=== PATIENT | female | born 1955 | race Caucasian/White ===

== ENCOUNTER → 2018-08-22 | Outpatient (CLI) | payer OTHER ==
[~2018-08-22] MED LIST: ALLEGRA-D 12 H1 EAC1; ALLEGRA-D 24 H1 EACH PO; CENTRUM SILVER1 EAC4 PO; COLON HERBAL C1 EACH PO; ECHINACEA400 MG PO; FIBER500 MG PO; GARLIC1000 MG PO; MAGNESIUM CITR100 MG PO; OMEGA 3-6-9 CO400 MG PO; PEPCID20 MG PO; PULMICORT FLE180 MCG INH; PULMICORT0.25 MG/2; VENTOLIN HFA 1818 GM INH; VENTOLIN17 GM; VITAMIN C500 M1 PO; VITAMIN D1000 UNI1 PO; ZINC50 MG PO; ZYRTEC10 M2
== END ==
LOC: CAT 10:57
DX: Z13.6 Encounter for screening for cardiovascular disorders (principal); E78.00 Pure hypercholesterolemia, unspecified

== ENCOUNTER → 2018-08-22 | Outpatient (CLI) | payer BC | LOC: ULTRA 10:47 | DX: G45.9 Transient cerebral ischemic attack, unspecified (principal); R09.89 Other specified symptoms and signs involving the circulatory and respiratory systems ==

== ENCOUNTER → 2018-08-25 | Outpatient (CLI) | payer BC, OTHER ==
--- NOTE | ~2018-08-25 | 2DMMODE ---
[facility] [place] [address] 2 D/M-MODE ECHOCARDIOGRAM Name: NATALEE JOHNSON Room #: REG [facility]#: [id number] Admission: 08/25/18 Attend Phys: Sierra Mccain Discharge: Date of : 55 Date of Service: 08/25/18 1638 Report #: [id number] THIS REPORT FOR: //name// APPROVED REPORT Study performed: 08/25/2018 15:39:03 EXAM: Comprehensive 2D, Doppler, and color-flow Echocardiogram Patient Location: Out-Patient Status: routine BSA: 1.74 HR: 65 bpm BP: 120/70 mmHg Other Information Study Quality: Good Indications Vertigo 2D Dimensions RVDd: 30.84 mm IVSd: 8.38 (7-11mm) LVOT Diam: 19.95 (18-24mm) LVDd: 38.13 mm PWd: 8.97 (7-11mm) Ascending Ao: 25.15 (22-36mm) LVDs: 25.72 (25-40mm) Aortic Root: 28.69 mm IVC: 15.00 mm Volumes Left Atrial Volume (Systole) Single Plane 4CH: 30.68 mL Single Plane 2CH: 43.37 mL LA ESV Index: 23.00 mL/m2 Aortic Valve AoV Peak Macho.: 1.14 m/s AO Peak Gr.: 5.23 mmHg LVOT Max P.12 mmHg LVOT Max V: 0.88 m/s REMY Vmax: 2.41 cm2 Mitral Valve E/A Ratio: 1.2 MV Decel. Time: 200.98 ms MV E Max Macho.: 0.71 m/s MV A Macho.: 0.61 m/s [facility] [address] [place] [address] 2 D/M-MODE ECHOCARDIOGRAM Name: NATALEE JOHNSON Room #: [facility].#: [id number] Admission: 08/25/18 Attend Phys: Sierra Mccain Discharge: Date of : 55 Date of Service: 08/25/18 1638 Report #: [id number] PHT: 58.28 ms IVRT: 114.19 ms Pulmonary Valve PV Peak Macho.: 0.81 m/s PV Peak Gr.: 2.63 mmHg Pulmonary Vein P Vein S: 0.48 m/s P Vein A: 0.26 m/s P Vein D: 0.43 m/s P Vein A Dur.: 141.9 msec P Vein S/D Ratio: 1.12 Tricuspid Valve TR Peak Macho.: 2.25 m/s RAP Estimate: 5.00 mmHg TR Peak Gr.: 20.16 mmHg PA Pressure: 25.00 mmHg Left Ventricle The left ventricle is normal size. There is normal left ventricular wall thickness. The left ventricular systolic function is normal. The left ventricular ejection fraction is within the normal range. LVEF is 60-65%. The left ventricular diastolic function is normal. Right Ventricle The right ventricle is normal size. The right ventricular systolic function is normal. Atria The left atrium size is normal. The right atrium size is normal. Aortic Valve The aortic valve is normal in structure. No aortic regurgitation is present. There is no aortic valvular stenosis. Mitral Valve The mitral valve is normal in structure. Trace mitral regurgitation. No evidence of mitral valve stenosis. Tricuspid Valve The tricuspid valve is normal in structure. Mild tricuspid regurgitation. PAP is estimated at 25 mmHg. Pulmonic Valve The pulmonary valve is normal in structure. Trace pulmonic regurgitation. [facility] [address] [place] [address] 2 D/M-MODE ECHOCARDIOGRAM Name: NATALEE JOHNSON Room #: REG [facility]#: [id number] Admission: 08/25/18 Attend Phys: Sierra Mccain Discharge: Date of : 55 Date of Service: 08/25/18 1638 Report #: [id number] Great Vessels The aortic root is normal in size. IVC is normal in size and collapses >50% with inspiration. Pericardium There is no pericardial effusion. <Conclusion> The left ventricle is normal size. LVEF is 60-65%. The left ventricular diastolic function is normal. The right ventricle is normal size. The left atrium size is normal. The aortic valve is normal in structure. Trace mitral regurgitation. Mild tricuspid regurgitation. PAP is estimated at 25 mmHg. The aortic root is normal in size. There is no pericardial effusion. <ELECTRONICALLY SIGNED> By: Fritz Raya MD, FACC 08/25/18 1638 [id number] Fritz Raya MD, FACC /INF
== END ==
LOC: CV 08:16 → NUC 10:51 → CV 11:57 → NUC 14:25
DX: I07.1 Rheumatic tricuspid insufficiency (principal); R09.89 Other specified symptoms and signs involving the circulatory and respiratory systems; Z78.0 Asymptomatic menopausal state

== ENCOUNTER → 2021-08-01 | Outpatient (CLI) | payer OTHER, MEDICARE | LOC: HYPER 08:04 | PROVIDERS: ATTEND Emergency Medicine | DX: I83.013 Varicose veins of right lower extremity with ulcer of ankle (principal); L97.312 Non-pressure chronic ulcer of right ankle with fat layer exposed; I83.92 Asymptomatic varicose veins of left lower extremity; R60.1 Generalized edema; J45.20 Mild intermittent asthma, uncomplicated; K21.9 Gastro-esophageal reflux disease without esophagitis; M85.80 Other specified disorders of bone density and structure, unspecified site; M40.299 Other kyphosis, site unspecified; Z79.899 Other long term (current) drug therapy ==

== ENCOUNTER → 2021-08-14 | Outpatient (CLI) | payer OTHER, MEDICARE | LOC: ULTRA 10:01 | PROVIDERS: ATTEND Emergency Medicine | DX: R60.1 Generalized edema (principal); L97.312 Non-pressure chronic ulcer of right ankle with fat layer exposed ==

== ENCOUNTER → 2021-08-14 | Outpatient (CLI) | payer OTHER, MEDICARE | LOC: HYPER 08:23 | PROVIDERS: ATTEND Emergency Medicine | DX: I83.013 Varicose veins of right lower extremity with ulcer of ankle (principal); L97.312 Non-pressure chronic ulcer of right ankle with fat layer exposed; S90.521D Blister (nonthermal), right ankle, subsequent encounter; I87.2 Venous insufficiency (chronic) (peripheral); R60.1 Generalized edema; M40.299 Other kyphosis, site unspecified; J45.20 Mild intermittent asthma, uncomplicated; K21.00 Gastro-esophageal reflux disease with esophagitis, without bleeding; I83.92 Asymptomatic varicose veins of left lower extremity; M85.80 Other specified disorders of bone density and structure, unspecified site; Z79.899 Other long term (current) drug therapy; X58.XXXD Exposure to other specified factors, subsequent encounter ==

== ENCOUNTER → 2021-12-25 | Outpatient (CLI) | payer OTHER, MEDICARE | LOC: HYPER 14:06 | PROVIDERS: ATTEND Emergency Medicine | DX: R21 Rash and other nonspecific skin eruption (principal); I83.013 Varicose veins of right lower extremity with ulcer of ankle; L97.312 Non-pressure chronic ulcer of right ankle with fat layer exposed; R60.1 Generalized edema; I87.2 Venous insufficiency (chronic) (peripheral); J45.20 Mild intermittent asthma, uncomplicated; K21.9 Gastro-esophageal reflux disease without esophagitis; M40.299 Other kyphosis, site unspecified; M85.89 Other specified disorders of bone density and structure, multiple sites ==